=== PATIENT | male | born 1955 | race Caucasian/White ===

== ENCOUNTER 2016-06-20 14:54 | Emergency (ER) | payer MEDICARE, OTHER ==
[~2016-06-20] VITALS: Ht 172.7 cm; Wt 90.9 kg
[~2016-06-20 14:54] MED LIST: ASPI81TA2 PO; FORM20VI IH; GABA100C PO; LOPRESSOR25 MG PO; MOME13HF IH; OMEP20TA86 PO; PRINIVIL PO; SYM100 PO; ZOC10 PO; hctz PO
[2016-06-20 15:00] VITALS: BP 160/106; PULSE 78; RESP 16; O2SAT 96
--- NOTE | 2016-06-20 15:39 | ED.REPORT ---
HPI-General Illness Date of Service Jun 20, 2016 ED Provider: Angie Caldwell Patient is a 60 year old male who presents to the ED [facility] of 155/117. Associated symptoms include a mild , dull, frontal headache, some nausea, and slightly blurred vision. He denies numbness, weakness, vomiting, chest pain, diaphoresis, or any other symptoms. He has had difficulty managing his blood pressure despite his medications. He has not taken his second dose of BP meds yet today. Nursing Notes Stated Complaint: HIGH BP, BLURRED VISION, [facility] Chief Complaint: Neuro Symptoms/ Deficits Nursing Notes Reviewed: Yes Allergies: Coded Allergies: glipizide (Verified Allergy, Intermediate, hives, 06/20/16) Contrast Media (Verified Allergy, Unknown, 06/20/16) flunisolide (Verified Allergy, Unknown, 06/20/16) iopromide (Verified Allergy, Unknown, 06/20/16) saxagliptin (Verified Allergy, Unknown, 06/20/16) simvastatin (Verified Allergy, Unknown, 06/20/16) Scheduled Amantadine-Expunged Drug, Do Not Renew! (Amantadine-Expunged Drug, Do Not Renew! ) 100 Mg Capsule 100 MG PO AM Aspirin-Expunged Drug, Do Not Renew! (Aspirin-Expunged Drug, Do Not Renew!) 81 Mg Tablet 81 MG PO DAILY Atorvastatin Calcium (Atorvastatin Calcium) 40 Mg Tablet 40 MG PO DAILY Budesonide/Formoterol 80-4.5 mcg Inh (Symbicort 80-4.5 mcg Inh) 120 Puff Inhaler 2 PUFF INHALATION BID Fluticasone Propionate (Fluticasone Propionate Nasal) 16 Gm [place].susp 2 SPRAY NS BID Formoterol Fumarate (Perforomist) 20 Mcg/2 Ml Vial.neb. 12 MCG IH BID Inhale one capsule in inhaler Lisinopril (Lisinopril) 20 Mg Tablet 20 MG PO BID Lisinopril-Expunged Drug, Do Not Renew! (Lisinopril-Expunged Drug, Do Not Renew! ) 40 Mg Tablet 40 MG PO DAILY Metformin ER (Metformin ER) 1,000 Mg Tablet 1,000 MG PO BID Metoprolol Tartrate (Metoprolol Tartrate) 50 Mg Tablet 50 MG PO BID Mometasone/Formoterol (Dulera 200 Mcg/5 Mcg Inhaler) 13 Gm Hfa.aer.ad 13 GM IH BID one puff Omeprazole-Expunged Drug, Do Not Renew! (Omeprazole-Expunged Drug, Do Not Renew! ) 20 Mg Tablet.dr 20 MG PO DAILY Pioglitazone (Pioglitazone) 15 Mg Tablet 15 MG PO DAILY Simvastatin-Expunged Drug, Choose New Med! (Simvastatin-Expunged Drug, Choose New Med!) 10 Mg Tablet 10 MG PO HS Scheduled PRN Albuterol Sulfate (Proair Respiclick) 90 Mcg Aer.pow.ba 90 MCG IH DIRECTED PRN PRN For Shortness of Breath Polyethylene Glycol 3350 (Polyethylene Glycol 3350) 17 Gm Powd.pack 17 GM PO DAILY PRN PRN For Constipation Miscellaneous Medications Propranolol (Propranolol) 1 Mg/1 Ml Vial MG IV Sodium Fluoride (Sodium Fluoride) 0.5 Mg/1 Ml Drops 0.5 MG PO General Time Seen by MD: 15:39 Chief Complaint Other (High blood pressure ) Hx Obtained From: Patient Arrived By: Walk-in Sudden in Onset?: Yes Onset Occurred: Just prior to arrival Recent Healthcare: Recent doctor visit Similar Sx Previous: Yes Past Medical History Past Medical History MS Reports: Diabetes mellitus, Hypertension Past Surgical History Montiel cyst back of leg Hernia Smoking History Former Smoker Social History Alcohol Use: Denies alcohol use Ambulatory Status Independent Review of Systems Full Review of Systems Eyes: Reports: Blurred bilateral Cardiovascular: Denies: Chest pain GI: Reports: Nausea, Denies: Vomiting Skin: Denies Diaphoresis Neurologic: Reports: Headache, Denies: Numbness, Weakness Complete sys rev & neg: except as marked. Physical Exam Vital Signs Vital Signs Date Time Temp Pulse Resp B/P Pulse Ox O2 Delivery O2 Flow Rate FiO2 06/20/16 16:46 80 18 150/103 97 Room Air 06/20/16 15:00 36.2 78 16 160/106 96 Room Air Initial VS: Reviewed, Vital signs abnormal General/Constitutional: Well-developed, Well-nourished Head / Eyes: Atraumatic, Normocephalic Neck: Full range of motion Respiratory: No respiratory distress Abdomen / GI: Soft, Non-tender Skin: Warm, Dry Neurologic: Alert, Oriented, Nonfocal Psychiatric: Mood/affect normal, Behavior normal, Normal thought content Neurologic: Oriented X3, Speech NL, No motor deficits, No sensory deficits, CN II - XII intact Re-Eval/Medical Decision Med Decision/Clinical Course The patient has very elevated blood pressure however does not significantly elevated. He complains of only a mild headache and is neurologically intact. I ordered labs and treatment for his headache however he declined treatment and was discharged home. Differential diagnosis considered or tension headache, migraine headache, blood pressure related headache, intracranial hemorrhage, meningitis, electrolyte abnormality, and dehydration. Time of Eval: 16:09 Re-Evaluation/Progress Note: Patient is refusing lab draws and requesting to go home. Time of Eval: 16:15 Re-Evaluation/Progress Note: Rechecked patient. Discussed plan for discharge. Patient understands and agrees with plan. All questions addressed at this time. Counseled Regarding: Diagnosis, Need for follow-up, When/why to return to ED Discharge & Departure Primary Impression: Hypertension Hypertension type: unspecified secondary hypertension Hypertension goal: unspecified goal Qualified Code: I15.9 - Secondary hypertension, unspecified Additional Impression: Headache Headache type: unspecified Headache chronicity pattern: acute headache Intractability: not intractable Qualified Code: R51 - Headache Disposition: Home Discharge Condition All VS Reviewed: Yes Condition: Stable Additional Instructions: Thank you for entrusting us with your care. You should return to your primary provider for an ultrasound of your kidneys to check for renal artery stenosis. Other causes for labile blood pressure should be investigated by your primary physician. Your blood pressure may be better controlled by medication adjustments. Return to the emergency department if your experience severe headache, chest pain, or any new or worsening symptoms. Referrals: Ed Balbuena MD (PCP) (Family) Scribe Attestation Portions of this note were transcribed by Kristal Shoemaker. I, Dr. Caldwell personally performed the history, physical exam and medical decision-making; I reviewed and confirmed the accuracy of the information in the transcribed note. Signed by: Kristal Shoemaker 06/20/16, 1616 copies to: Ed Balbuena MD, Jena M MD Jun 20, 2016 15:39 KRISTAL SHOEMAKER Jun 20, 2016 15:47
[2016-06-20] MEDS ORDERED: METO50TA3 PO (15:40)
[2016-06-20] MEDS ORDERED: POLY17PO2 PO (15:40)
[2016-06-20] MEDS ORDERED: [UNRECOGNIZED DRUG - CODE] PO (15:40)
[2016-06-20] MEDS ORDERED: PIOG15TA21 PO (15:40)
[2016-06-20] MEDS ORDERED: PROP1VIA IV (15:40)
[2016-06-20] MEDS ORDERED: LISI-567 PO (15:40)
[2016-06-20] MEDS ORDERED: ALBU90AE IH (15:40)
[2016-06-20] MEDS ORDERED: METF-496 PO (15:40)
[2016-06-20] MEDS ORDERED: ATOR40TA69 PO (15:40)
[2016-06-20] MEDS ORDERED: BUDE10.2 INHALATION (15:40)
[2016-06-20] MEDS ORDERED: FLUT16SP NS (15:40)
[2016-06-20] MEDS ORDERED: ProchlorPERazine 5 mg/mL 2 mL Inj IVPUSH ONE (15:55)
[2016-06-20] MEDS ORDERED: 0.9% Sodium Chloride 1,000 ML IV ONE (15:55)
[2016-06-20] MEDS ORDERED: Ketorolac 15 mg/mL Inj IVPUSH ONE (15:55)
[2016-06-20] MEDS ORDERED: Ketorolac 15 mg/mL Inj IM ONE (16:10)
[2016-06-20] MEDS ORDERED: diphenhydrAMINE 25 mg Capsule PO ONE (16:10)
[2016-06-20 16:46] VITALS: BP 150/103; PULSE 80; RESP 18; O2SAT 97
== END 2016-06-20 16:47 | disposition home or self-care (01) ==
LOC: SED 14:54
DX: I10 Essential (primary) hypertension (principal); R51 Headache; H53.8 Other visual disturbances; E11.9 Type 2 diabetes mellitus without complications; G35 Multiple sclerosis; Z79.82 Long term (current) use of aspirin; Z79.84 Long term (current) use of oral hypoglycemic drugs; Z87.891 Personal history of nicotine dependence; Z88.8 Allergy status to other drugs, medicaments and biological substances; Z91.041 Radiographic dye allergy status